=== PATIENT | male | born 1985 | race Caucasian/White ===

== ENCOUNTER 2020-06-15 22:37 | Inpatient (IN) | payer OTHER ==
[~2020-06-15] VITALS: Ht 175.3 cm; Wt 88.0 kg
[~2020-06-15 22:37] MED LIST: BACTRIM DS TAB1 EACH PO; CARISOPRODOL 3350 MG PO; CLARITIN10 MG PO; IBUPROFEN 600600 M1 PO; IBUPROFEN 800800 M1 PO; IBUPROFEN 800800 MG PO; NAPROXEN 220 M220 M1 PO; NORCO 5-325 TA1 EACH PO; PENICILLIN VK250 MG PO; PENICILLIN VK500 M1 PO; PERCOCET 5-3251 EACH PO; PREDNISONE 10 M10 M1 PO; PREDNISONE 20 M20 M1 PO; ULTRAM 50MG TAB50 MG PO
[2020-06-15 22:42] VITALS: BP 121/80
[2020-06-16 00:43] LABS: HEMATOCRIT 40.2 % (42.0-52.0); HEMOGLOBIN 13.6 gm/dL (14.0-18.0); MCH 29.6 pg (26.0-34.0); MCHC 33.8 g/dL (28.0-37.0); MCV 87.5 fL (80.0-100.0); RBC 4.59 mil/uL (4.50-6.00); RDW 12.6 % (10.5-14.5); WBC 11.3 thou/uL (4.0-11.0)
[2020-06-16 00:47] LABS: CALCIUM 8.8 mg/dL (8.5-10.1); CREATININE 0.9 mg/dL (0.7-1.3); POTASSIUM 3.8 mmol/L (3.5-5.1)
[2020-06-16 01:05] VITALS: BP 120/81
[2020-06-16 02:16] VITALS: BP 130/74
[2020-06-16 03:12] VITALS: BP 124/63
--- NOTE | 2020-06-16 05:13 | NUR ---
RECIEVED CARE OF THIS PATIENT AT 0320 FROM ED VIA W/C ACCOMPANIED BY ED BILLY. PATIENT ALERT AND ORIENTED X4. HAS DRESSING ON ZARI. PATIENT REFUSED TO HAVE DRESSING CHANGED AND THE WOUND ASSESSED AT THIS TIME, WANTS TO WAIT. WILL TRY TO RECORD LATER THIS MORNING. C/O MILD PAIN BUT DID NOT WANT ANYTHING FOR PAIN AT TIME OF ASSESSMENT. PATIENT NOT A FALL RISK AND IS UP AD NIHARIKA. REMAINS NPO FOR SURGERY TODAY. SLEPT OFF AND ON DURING NIGHT.
[2020-06-16 05:55] LABS: ALBUMIN 3.8 g/dL (3.4-5.0); TOTAL BILIRUBIN 0.3 mg/dL (0.2-1.0); TOTAL PROTEIN 7.3 g/dL (6.4-8.2)
[2020-06-16 08:15] VITALS: BP 124/84
[2020-06-16 15:05] VITALS: BP 136/81
--- NOTE | 2020-06-16 19:32 | NUR ---
A PICC WAS NOTED TO BE ORDERED FOR THIS PATIENT AND HE REFUSED PLACEMENT AT THIS TIME. A #20G PIV WAS PLACED IN THE LEFT UPPER ARM TO REPLACE THE PIV IN THE FOOT. WE WILL RETURN TO PLACE PICC IF PATIENT CONSENTS TO PLACEMENT AND IT IS VERIFIED WITH INFECTIOUS DISESE THAT LINE IS NEEDED
[2020-06-16 19:46] VITALS: BP 127/85
--- NOTE | 2020-06-17 01:11 | NUR ---
ASSESSED PT @1900 PT A&OX4 C/O PAIN IN LEFT UA. PO PAIN MED GIVEN. IV IN LEFT FA AND FLUIDS INFUSING. PT UP AD NIHARIKA TO THE BATHROOM. DRESSING IN UPPER ARM, C/D/I. CALL LIGHT AT REACH. PT DENIES N/V. WILL CONT TO MONITOR.
[2020-06-17 03:22] LABS: AMP/METHAMP POSITIVE (Negative); BARBITURATES Negative (Negative); BENZODIAZEPINES Negative (Negative); COCAINE Negative (Negative); METHADONE Negative (Negative); OPIATES POSITIVE (Negative); PCP Negative (Negative)
[2020-06-17 05:26] VITALS: BP 134/73
[2020-06-17 06:10] LABS: HEMOGLOBIN 13.8 gm/dL (14.0-18.0); MCH 29.1 pg (26.0-34.0); MCHC 33.7 g/dL (28.0-37.0); MCV 86.3 fL (80.0-100.0); RBC 4.75 mil/uL (4.50-6.00); RDW 12.2 % (10.5-14.5); WBC 7.9 thou/uL (4.0-11.0)
[2020-06-17 09:36] VITALS: BP 127/86
--- NOTE | 2020-06-17 10:27 | NUR ---
ASSUMED PT CARE THIS AM. PT VSS, A&OX4. PATIENT COOPERATIVE WITH STAFF AND CALLS OUT APPROPRIATELY WHEN NEEDED. DRESSING TO ZARI WITH A DRESSING, REDNESS NOTED TO RIGHT UPPER ARM BUT NO OPEN AREA ON THIS ARM. REPORTING NO NAUSEA, VOMITING, NUMBNESS, OR TINGLING. ON ROOM AIR. IV PATENT, FLUIDS INFUSING. PATIENT USING A URINAL WHEN NEEDED, OTHERWISE IS UP AD NIHARIKA TO THE BATHROOM. MEDS GIVEN WITHOUT ISSUE THIS AM.
[2020-06-17] MEDS ORDERED: BACTRIM DS TAB1 EACH PO (10:47)
[2020-06-17 11:08] VITALS: BP 127/86
--- NOTE | 2020-06-17 12:23 | HC ---
[facility] [place] [address] CONSULTATION Name: CATARINO BUSTOS Room #: 439- ADM IN M.R.#: [id number] Admission: 06/16/20 Attend Phys: Ofe Dao MD Discharge: Date of : 83 Report #: [id number] THIS REPORT FOR: cc: NO FAMILY PHYSICIAN or PCP NO FAMILY PHYSICIAN or PCP Haider Barnes MD ~ DATE OF SERVICE: 06/16/2020 INFECTIOUS DISEASE CONSULTATION ATTENDING PHYSICIAN: Dr. Dao. REASON FOR EVALUATION: Left upper extremity skin and soft tissue infection, likely abscess. HISTORY OF SUBJECTIVE: Chart reviewed, the patient examined. This is a 35-year-old with history of hypertension, ____ drug abuse, who presented with complaints of pain associated with the proximal lateral aspect of his right upper extremity, site of a previous injection into the soft tissue, is notable he uses heroin. He has significant amount of pain associated with it. He does admit to fevers, chills, and sweats as well. He has had a poor p.o. intake with anorexia. He has undergone imaging of both upper extremities. Left, which has an open site is packed and showed no evidence of abscess. Right side, there is question of a small fluid collection as well. Cultures have been collected. Gram stain showed moderate wbc's, many gram-positive cocci. Coronavirus testing was negative. Plain film showed no bony changes. He has been started empirically on therapy with Zosyn and vancomycin. ALLERGIES: None known. CURRENT MEDICATIONS: ____ antibiotics include rivaroxaban, hydrocodone, nicotine patch, p.r.n. antiemetics. PAST MEDICAL HISTORY: Hypertension. SOCIAL HISTORY: Illicit substance abuse, specifically heroin, which he injects. FAMILY HISTORY: Noncontributory. REVIEW OF SYSTEMS: Otherwise, unremarkable. Denies significant pulmonary-related complaints. PHYSICAL EXAMINATION: GENERAL: He appears ill. He is in moderate distress. VITAL SIGNS: Temperature 98.1, pulse 76, respirations 18, blood pressure [facility] [address] [place] [address] CONSULTATION Name: CATARINO BUSTOS Room #: 9-[facility].#: [id number] Admission: 06/16/20 Attend Phys: Ofe Dao MD Discharge: Date of : 83 Report #: [id number] 136/81. SKIN: Warm, dry, no rashes. HEENT: Normocephalic. Extraocular muscles are intact. NECK: Supple. LUNGS: Generally, clear to auscultation bilaterally. HEART: Regular. I do not appreciate any murmur. ABDOMEN: Soft, nontender, nondistended. EXTREMITIES: Upper extremity on the left lateral aspect has a dressing in place. It is exquisitely tender. Wound was packed. There is a moderate degree of inflammation noted. AND RECTAL: Deferred. LABORATORY DATA: Ultrasound as noted above. LFTs unremarkable. Alcohol level less than 10. Electrolytes: Sodium 138, potassium 3.8, chloride 101, bicarbonate is 29, anion gap of 8, BUN and creatinine 12 and 0.9, glucose of 86. CBC: White count 11.3, H and H 13.6 and 40.2, platelets of 210. ASSESSMENT: Left upper extremity skin and soft tissue infection, abscess post incision and drainage at the bedside. Awaiting surgical evaluation. We will continue empiric therapy, suspect Staph or Strep etiology. At this point, he is not overtly toxic. There is no evidence of septicemia. Blood cultures in progress. We will add incentive spirometry. Continue wound care as prescribed. Monitor expectantly for evidence of withdrawal as well as any sort of nosocomial related complications. <ELECTRONICALLY SIGNED> By: Haider Barnes MD 06/17/20 1223 [id number] Haider Barnes MD /nt
--- NOTE | 2020-06-17 13:23 | NUR ---
ASSESSMENT: CM REVIEWED CHART AND MET WITH PATIENT. PT REPORTS THAT HE LIVES WITH PARENT. PT WAS ADMITTED WITH L UPPER ARM ABSESS AND HAS HX OF DRUG USE. PT REPORTS THAT HE IS FULLY INDEPENDENT WITH ADLS AND AMBULATION. PT REPORTS HAVING NO INSURANCE AND IS NOT CURRENTLY EMPLOYED. PT REPORTS NO HAVING A PCP. CM PROVIDED PATIENT WITH SAFETY NET CLINIC LIST WELL CONTACT FOR [facility]. PT DENIES THE NEED FOR DRUG ABUSE RESOURCES. CM WITHG APPROVAL OF CM DIRECTOR VOUCHERED PATIENTS ANBX AT DISCHARGE COSTING 11.12. CM PROVIDED TO BEDSIDE RN TO GIVE TO PATIENT. PT HAS TRANSPORTATION. HOME.
--- NOTE | 2020-06-17 14:00 | NUR ---
PATIENT IV REMOVED. REPORTS UNDERSTANDING OF DISCHARGE TEACHING. DISCHARGED AT 1300.
== END 2020-06-17 13:10 | disposition home or self-care (01) | DRG 603 ==
LOC: ER 22:37 → EROBS 06-16 00:14 → 4S 06-16 02:11
PROVIDERS: Emergency Medicine; Nurse Practitioner Family; ADMIT Internal Medicine; ATTEND Internal Medicine
PROC: 0H9CXZZ Drainage of Left Upper Arm Skin, External Approach (ICD-10-PCS; principal; 2020-06-16)
DX: L03.114 Cellulitis of left upper limb (principal); I10 Essential (primary) hypertension; L02.414 Cutaneous abscess of left upper limb; Z20.822 Contact with and (suspected) exposure to COVID-19; F17.210 Nicotine dependence, cigarettes, uncomplicated; F12.10 Cannabis abuse, uncomplicated; Z71.6 Tobacco abuse counseling; Z23 Encounter for immunization
CPT/HCPCS: 10195